=== PATIENT | female | born 2000 | race Caucasian/White ===

== ENCOUNTER 2018-03-14 23:38 | Observation (INO) ==
[2018-03-15] MEDS ORDERED: Ketorolac 15 MG/ML VIAL IVP PRN (02:41)
[2018-03-15] MEDS ORDERED: Naloxone 0.4 MG/ML INJ IVP PRN ×2 (02:41→17:27)
[2018-03-15] MEDS ORDERED: Ondansetron ODT 4 MG TAB.RAPDIS SL PRN ×2 (02:41→17:27)
--- NOTE | 2018-03-15 02:45 | Internal Med History&Physical ---
<Joan Corea M - Last Filed: 03/15/18 04:53> Date of Encounter: 03/15/18 Time of Encounter: 02:43 Internal Medicine - H&P: HPI Chief complaint: right flank pain History of present illness: Ms. Vera is a 17 year old female three months postpardum presented to [facility] ED for right flank pain. Sudden onset yesterday with sharp pain . Associated symptoms of nausea, increased urinary frequency, and burning with urination. She noticed blood on toilet paper after urinated but could not tell if vaginal. She is breast feeding has not started menses since delivery. In [facility] ED, vitals T 97.6, HR 103 BP 100/68 and RR 18 99% RA. WBC 16.8 and LA 1.3. Negative beta HCG. UA negative ph 6 with no blood, nitrites or esterase. CMP wnl with Scr 0.81 and mild elevated alk phos 155. CT abd was completed and patient was told 6mm stone. She was given 1 L IVF and rocephin 1m g with zofran and tordal giving good relief. She had due to macrosomia with good incision healing and no complications. She received general anesthesia and had not compilations. No known medical history but family history of nephrolithiasis in mother. Never smoker denies EtOH and illicit drug use. Past Med Surg Social Fam HX - Past Medical History Medical history: no medical history Psychiatric history: depression - Past Surgical History Surgical History: - Social History Smoking Status: Never smoker Smokeless Tobacco Status: No Alcohol use: none Drug use: none - Family History Mother Hx Family Genitourinary Disorders: Yes (nephrolithiasis) Grandmother Hx Family Cardiac Disorders: Yes (CHF) Internal Medicine - H&P: Meds Amoxicillin [Amoxil] 500 mg PO TID 7 Days capsule 04/10/15 [Rx] Sertraline [Zoloft] 50 mg PO DAILY 03/15/18 [History] 3 Allergy/AdvReac Type Severity Reaction Status Date / Time No Known Allergies Allergy Verified 04/10/15 17:31 All Systems PM: A 10-system review of systems was performed and is negative for pertinent findings except as documented above in the HPI. - Constitutional Constitutional: no chills, no fatigue, no fever(s) - EENT Eyes: no blurry vision - Cardiovascular Cardiovascular ROS IM: no chest pain, no edema, no lightheadedness, no syncope - Respiratory Respiratory: no cough, no dyspnea, no wheezing - Gastrointestinal Gastrointestinal: nausea, no abdominal pain, no constipation, no diarrhea, no vomiting - Genitourinary Genitourinary: abnormal menses, dysuria, hematuria, urinary frequency, no difficulty urinating, no urinary incontinence, no vaginal discharge - Constitutional Vitals: Temp Pulse Resp BP Pulse Ox 98.2 F 101 14 116/66 98 03/15/18 01:17 03/15/18 01:17 03/15/18 01:17 03/15/18 01:17 03/15/18 01:17 General appearance: Present: A&O X 1, A&O X 3, pleasant, answers questions appropriately Exam: Laying comfortably in bed - Head Head exam: Present: atraumatic, normocephalic - Eye Eye exam: Present: EOMI, PERRL - ENT ENT exam: Present: mucous membranes moist, normal oropharynx - Respiratory Respiratory exam: Present: CTAB. Absent: rales, respiratory distress, wheezes - Cardiovascular Cardiovascular exam: Present: RRR. Absent: gallop, rubs - GI/Abdominal GI/Abdominal exam: Present: normal bowel sounds. Absent: guarding, mass, tenderness - Extremities Exam Extremities exam: Present: full ROM, radial pulses palpable and symmetrical. Absent: pedal edema, tenderness - Back Exam Back exam: Present: CVA tenderness (R), full ROM, normal inspection. Absent: CVA tenderness (L), rash noted Additional comments: mild left CVA tenderness - Psychiatric Psychiatric exam: Present: normal affect, normal mood Internal Med - H&P Results - Labs CBC & Chem 7: 03/15/18 03:21 03/15/18 03:21 - Assessment and plan (1) Nephrolithiasis Current Visit: Yes Status: Acute Assessment and plan: Awaiting CT records but [facility] ED called and consulted [place] [facility]. Met SIRs criteria at presentation and considered risk of developing pyelonephritis with unknown degree of obstruction. - continue Rocephin - repeat blood cultures - repeat UA and reflex urine - NPO - IVF NS at 125 - Zofran prn - norco 5 prn as per pharmacy toradol crosses to breast milk at higher rate - considered flomax but mildly hypotensive at ED Requested Evette CT results as it was not sent with patient. (2) Hydronephrosis concurrent with and due to calculi of kidney and ureter Current Visit: Yes Status: Suspected Assessment and plan: awaiting CT records from [place] (3) Depression Current Visit: Yes Status: Acute Assessment and plan: continue home Zoloft Qualifiers: Depression Type: unspecified Qualified Code(s): F32.9 - Major depressive disorder, single episode, unspecified (4) DVT prophylaxis Current Visit: Yes Status: Acute Assessment and plan: heparin - Time Spent With Patient Total time spent is greater than 50% in coordination of care (as documented) at patient's floor/unit and/or counseling patient: Greater than 35 minutes <Josué Venegas - Last Filed: 03/15/18 05:31> Date of Encounter: 03/15/18 Time of Encounter: 05:23 - Constitutional Constitutional: no chills, no fever(s) - EENT Eyes: no change in vision Nose, mouth and throat: no sore throat - Cardiovascular Cardiovascular ROS IM: no chest pain, no dyspnea - Respiratory Respiratory: no cough, no hemoptysis, no chest congestion - Gastrointestinal Gastrointestinal: nausea, no abdominal pain, no diarrhea, no heartburn, no vomiting - Genitourinary Genitourinary: dysuria, flank pain, hematuria - Musculoskeletal Musculoskeletal ROS IM: no arthralgias, no back pain - Integumentary Integumentary IM: no rash, no jaundice - Neurological Neurological ROS: no dizziness, no focal weakness, no frequent falls - Psychiatric Psychiatric: depression (post-), no anxiety - Endocrine Endocrine IM: no polydipsia, no polyphagia, no polyuria - Allergic/Immunologic Allergic/Immunologic: no GI upset with certain foods - Constitutional Vitals: Temp Pulse Resp BP Pulse Ox 98.6 F 82 14 101/64 99 03/15/18 05:02 03/15/18 05:02 03/15/18 05:02 03/15/18 05:02 03/15/18 05:02 General appearance: Present: A&O X 3, pleasant, no acute distress, answers questions appropriately - Eye Eye exam: Present: EOMI, PERRL. Absent: scleral icterus - ENT ENT exam: Present: mucous membranes dry, normal oropharynx - Neck Neck exam general surgery: Present: supple - Respiratory Respiratory exam: Present: CTAB. Absent: rales, respiratory distress, wheezes - Cardiovascular Cardiovascular exam: Present: RRR. Absent: diastolic murmur, systolic murmur - GI/Abdominal GI/Abdominal exam: Present: normal bowel sounds, soft. Absent: guarding, hepatomegaly, rebound, splenomegaly, tenderness - Extremities Exam Extremities exam: Present: full ROM, warm, radial pulses palpable and symmetrical. Absent: calf tenderness, joint swelling, pedal edema, tenderness - Back Exam Back exam: Present: CVA tenderness (R), normal inspection. Absent: CVA tenderness (L) - Neurological Exam Neurological exam: Present: alert, CN II-XII intact, oriented X3, no focal deficits - Psychiatric Psychiatric exam: Present: normal affect, normal mood - Skin Skin exam: Present: dry, intact, warm Internal Med - H&P Results - Labs CBC & Chem 7: 03/15/18 03:21 03/15/18 03:21 Labs: Short CBC 03/15/18 Range/Units 03:21 WBC 11.9 H (4.3-11.1) K/mcL Hgb 11.3 L (11.5-15.4) g/dL Hct 35.2 L (35.3-44.9) % Plt Count 403 H (140-400) K/mcL Neutrophils # 9.2 H (1.6-8.9) K/mcL BMP 03/15/18 03:21 Sodium 139 Potassium 3.8 Chloride 107 Carbon Dioxide 21 L BUN 7 Creatinine 0.58 L Glucose 105 Calcium 9.3 Liver Function 03/15/18 Range/Units 03:21 Total Bilirubin 0.4 (0.3-1.0) mg/dL AST 16 (13-39) Units/L ALT 26 (7-52) Units/L Alkaline Phosphatase 120 H (34-104) Units/L Albumin 4.1 (3.5-5.7) g/dL Urine 03/15/18 Range/Units 05:02 Urine Color Yellow (Yellow) Urine Clarity Clear (Clear) Urine pH 7.0 (5.0-8.0) pH Units Ur Specific [place] > 1.030 H (1.010-1.025) Urine Protein Negative (Neg-Trace) mg/dL Urine Glucose (UA) Normal (Normal) mg/dL - Time Spent With Patient Total time spent is greater than 50% in coordination of care (as documented) at patient's floor/unit and/or counseling patient: - Attending Attestation I discussed the patient [place], past medical history, review of systems, lab data , and exam findings with Dr. Corea. I then saw and examined patient independently. Furthermore, I discussed the patient case with the transferring physician from [facility] ER. Although patient meets SIRS/sepsis criteria, I do not feel she is septic. I suspect all her symptoms and findings are likely due to urolithiasis. I agree with continued IV fluid hydration and empiric antibiotics with Rocephin for the time being. We will follow her blood and urine cultures. If these are negative, I think we will stop antibiotics in the next 2 days. She will likely go to surgery today for cystoscopy with ureteral stent placement per Dr. Nicole. However, I will defer to urology for that. We will keep her nothing by mouth, continue IV fluids, control nausea and pain, and continue antibiotics as above for now. Other than my comments above and noted exam findings, I agree with Dr. Corea's assessment and plan.
[2018-03-15 03:40] LABS: Basophils % 0.3 %; Eosinophils % 0.1 %; Hematocrit 35.2 % (35.3-44.9); Hemoglobin 11.3 g/dL (11.5-15.4); Immature Granulocytes % 0.3 % (0-4); Mean Corpuscular HGB Conc 32.1 g/dL (31.6-35.5); Mean Corpuscular Hemoglobin 24.7 pg (28.0-33.3); Mean Corpuscular Volume 76.9 fL (83.0-100.0); Mean Platelet Volume 9.7 fL (9.4-12.4); Monocytes # 0.6 K/mcL (0.0-1.3); Monocytes % 4.6 %; Neutrophils # 9.2 K/mcL (1.6-8.9); Platelet Count 403 K/mcL (140-400); Red Blood Count 4.58 M/mcL (3.82-4.97); Red Cell Distribution Width 13.9 % (11.5-14.5); Segmented Neutrophils % 77.7 %
[2018-03-15] MEDS: 0.9 % Sodium Chloride 1,000 ML IVC SCH ×2 (03:40→12:19)
[2018-03-15 03:47] LABS: INR 1.1; Prothrombin Time 12.4 Seconds (9.4-12.1)
[2018-03-15 04:00] LABS: Alanine Aminotransferase 26 Units/L (7-52); Albumin 4.1 g/dL (3.5-5.7); Albumin/Globulin Ratio 1.2 (1.1-2.2); Alkaline Phosphatase 120 Units/L (34-104); Aspartate Amino Transferase 16 Units/L (13-39); BUN/Creatinine Ratio 12 (6-26); Bilirubin,Total 0.4 mg/dL (0.3-1.0); Blood Urea Nitrogen 7 mg/dL (6-20); Calcium 9.3 mg/dL (8.6-10.3); Carbon Dioxide 21 mEq/L (23-29); Chloride 107 mEq/L (98-107); Globulin 3.3 g/dL (2.4-3.5); Glucose 105 mg/dL (70-105); Osmolality,Calculated 286 (280-300); Potassium 3.8 mEq/L (3.5-5.1); Sodium 139 mEq/L (136-145); Total Protein 7.4 g/dL (6.4-8.9); eGFR For Non-African Americans > 60
[2018-03-15] MEDS ORDERED: *HR* HYDROcodone/Acet 5/325 mg TABLET PO PRN ×2 (04:30→17:27)
[2018-03-15 05:15] LABS: Bilirubin,Urine Negative (Negative); Blood,Urine Negative (Negative); Clarity,Urine Clear (Clear); Color,Urine Yellow (Yellow); Glucose,Urine (UA) Normal (Normal); Ketones,Urine Trace mg/dL (Negative); Leukocyte Esterase,Urine Negative (Negative); Nitrite,Urine Negative (Negative); Protein,Urine Negative (Neg-Trace); Specific Gravity,Urine > 1.030 (1.010-1.025); Urobilinogen,Urine Normal (Normal)
[2018-03-15] MEDS ORDERED: *HR* Heparin 5,000 UNIT/ML VIAL SQ SCH ×2 (06:00→18:00)
--- NOTE | 2018-03-15 07:56 | Urology - Consult Note ---
Date of Encounter: 03/15/18 Time of Encounter: 07:54 - Assessment and Plan (1) Hydronephrosis concurrent with and due to calculi of kidney and ureter Current Visit: Yes Status: Suspected Assessment and plan: will plan on right ureteroscopic stone extraction today in OR. Urology CN:CARLYLE Consult date: 03/15/18 Reason for consult Urology: Hydronephrosis Requesting physician: Josué Venegas History of present illness: Judy is a 17 y/o female with a history of arrival to outside hospital yesterday secondary to severe right-sided flank pain. Patient was found to have a distal 6 mm UVJ stone. Patient had significant proximal hydronephrosis. Patient states her pain is currently controlled with Toradol. Patient recently delivered via 3 months ago. She is currently breast feeding. No current nausea or vomiting. No fevers. Past Med Surg Social Fam HX - Past Medical History Medical history: no medical history Psychiatric history: depression - Past Surgical History Surgical History: - Social History Smoking Status: Never smoker Smokeless Tobacco Status: No Alcohol use: none Drug use: none - Family History Mother Hx Family Genitourinary Disorders: Yes (nephrolithiasis) Grandmother Hx Family Cardiac Disorders: Yes (CHF) Medications and Allergies Amoxicillin [Amoxil] 500 mg PO TID 7 Days capsule 04/10/15 [Rx] Sertraline [Zoloft] 50 mg PO DAILY 03/15/18 [History] 3 Allergy/AdvReac Type Severity Reaction Status Date / Time No Known Allergies Allergy Verified 04/10/15 17:31 Review of Systems - Constitutional no chills, no fever(s) - EENT Nose, mouth and throat: no dizziness - Cardiovascular no chest pain - Respiratory no cough Exam Initial Vital Signs Temp Pulse Resp BP Pulse Ox 98.2 F 101 14 116/66 98 03/15/18 01:17 03/15/18 01:17 03/15/18 01:17 03/15/18 01:17 03/15/18 01:17 - General physical appearance Present: well developed, well nourished - Eyes Present: PERRL - Neck Present: no lymphadenopathy - Respiratory Present: normal respiratory effort Urology Results - Labs 03/15/18 03:21 03/15/18 03:21 Abnormal lab results WBC 11.9 K/mcL (4.3-11.1) H 03/15/18 03:21 Hgb 11.3 g/dL (11.5-15.4) L 03/15/18 03:21 Hct 35.2 % (35.3-44.9) L 03/15/18 03:21 MCV 76.9 fL (83.0-100.0) L 03/15/18 03:21 MCH 24.7 pg (28.0-33.3) L 03/15/18 03:21 Plt Count 403 K/mcL (140-400) H 03/15/18 03:21 Neutrophils # 9.2 K/mcL (1.6-8.9) H 03/15/18 03:21 PT 12.4 Seconds (9.4-12.1) H 03/15/18 03:21 Carbon Dioxide 21 mEq/L (23-29) L 03/15/18 03:21 Creatinine 0.58 mg/dL (0.60-1.20) L 03/15/18 03:21 Alkaline Phosphatase 120 Units/L (34-104) H 03/15/18 03:21 Ur Specific [place] > 1.030 (1.010-1.025) H 03/15/18 05:02 Urine Ketones Trace mg/dL (Negative) H 03/15/18 05:02 Diabetes panel 03/15/18 Range/Units 03:21 Sodium 139 (136-145) mEq/L Potassium 3.8 (3.5-5.1) mEq/L Chloride 107 (98-107) mEq/L Carbon Dioxide 21 L (23-29) mEq/L BUN 7 (6-20) mg/dL Creatinine 0.58 L (0.60-1.20) mg/dL Glucose 105 (70-105) mg/dL Calcium 9.3 (8.6-10.3) mg/dL AST 16 (13-39) Units/L ALT 26 (7-52) Units/L Alkaline Phosphatase 120 H (34-104) Units/L Albumin 4.1 (3.5-5.7) g/dL Calcium panel 03/15/18 Range/Units 03:21 Calcium 9.3 (8.6-10.3) mg/dL Albumin 4.1 (3.5-5.7) g/dL Pituitary panel 03/15/18 Range/Units 03:21 Sodium 139 (136-145) mEq/L Potassium 3.8 (3.5-5.1) mEq/L Chloride 107 (98-107) mEq/L Carbon Dioxide 21 L (23-29) mEq/L BUN 7 (6-20) mg/dL Creatinine 0.58 L (0.60-1.20) mg/dL Glucose 105 (70-105) mg/dL Calcium 9.3 (8.6-10.3) mg/dL Adrenal panel 03/15/18 Range/Units 03:21 Sodium 139 (136-145) mEq/L Potassium 3.8 (3.5-5.1) mEq/L Chloride 107 (98-107) mEq/L Carbon Dioxide 21 L (23-29) mEq/L BUN 7 (6-20) mg/dL Creatinine 0.58 L (0.60-1.20) mg/dL Glucose 105 (70-105) mg/dL Calcium 9.3 (8.6-10.3) mg/dL Total Bilirubin 0.4 (0.3-1.0) mg/dL AST 16 (13-39) Units/L ALT 26 (7-52) Units/L Alkaline Phosphatase 120 H (34-104) Units/L Albumin 4.1 (3.5-5.7) g/dL All other labs normal. Consult Discharge Plan - Plan Referrals: Niyah Lopes, BIA [Primary Care Provider] -
[2018-03-15] MEDS ORDERED: cefTRIAXone 1,000 MG in Water for inj. (sterile) 20 ML 10 ML IVP SCH (09:00)
--- NOTE | 2018-03-15 10:21 | Internal Med Progress Note ---
<Elsie Nevarez - Last Filed: 03/15/18 17:08> Hospitalist Progress Note - Encounter Date of Encounter: 03/15/18 Time of Encounter: 08:30 - Subjective Interval History: The patient is a very pleasant 17 year old female who is 3 months post- presenting to [facility] as a transfer from [facility] ED with right flank pain. Patient said the pain began suddenly yesterday and was a sharp pain in her right flank. She also had nausea, increased urinary frequency, and burning with urination. She noticed blood on the toilet paper after urinating but could not tell if it was vaginal. She is breast feeding and has not had her menses start post- delivery. In [facility] ED last night, UA was negative with pH 6, no blood, nitrates or leukocyte esterase. CT of abdomen showed a distal 6mm UVJ stone and hydronephrosis. She was given 1L IVF and rocephin 1g with zofran and toradol. Patient admits she drinks a significant amount of soda and does not like to drink water. She has no past medical history but her mom does have a history of nephrolithiasis. This is hospitalization day number 1. The patient was seen and examined at bedside this morning. No acute events since admission early this AM. Today, patient states that her nausea has resolved and her right flank pain has improved but is still present. She has not noticed any blood in her urine and she is no longer experiencing dysuria. The patient denies any new complaints today. The patient denies any lightheadedness, dizziness, vision changes, headache, chest pain, palpitations, shortness of breath, cough, wheezing, sputum production, vomiting, bowel changes, edema, fever or chills. - Exam Vitals: Temp Pulse Resp BP Pulse Ox 98.4 F 78 16 101/64 99 03/15/18 07:15 03/15/18 07:15 03/15/18 07:15 03/15/18 07:15 03/15/18 07:15 Exam: GENERAL: Patient is a well-nourished 17 year old female in no acute distress with appropriate affect. Alert & oriented x3. HEENT: Head is normocephalic, atraumatic, well formed. EYES: PERRLA, EOMI. MOUTH : Oropharynx clear. Mucous membranes moist. NECK: Supple, no masses, trachea midline. No JVD noted. CV: Regular rate and rhythm. Normal S1, S2 with no clicks, murmurs, gallops, or rubs. PULMONARY: Breath sounds are clear and equal bilaterally. Symmetrical chest expansion. No wheeze, rales or rhonchi. Good effort. GI: Abdomen is soft, nondistended, tender to palpation in the right flank, positive bowel sounds x 4 present and appropriate. No peritoneal signs or guarding. No palpable masses. Scar from noted, no erythema, healing well. SKIN: Warm, dry and intact. No rashes, bruising, cyanosis or non healing lesions are seen. No edema is noted. NEUROLOGICAL: Alert, awake. CN II-XII grossly intact. Patient is moving all extremities and following commands appropriately. No focal deficits are noted. Muscle strength 5/5 x 4 extremities. VASCULAR/EXTREMITIES: No cyanosis, clubbing, or edema in lower extremities. - Assessment and Plan (1) Nephrolithiasis Current Visit: Yes Status: Acute Assessment and Plan: Patient presented with right flank pain, urinary frequency, and dysuria from [facility] ED. She was found to have a distal 6mm UVJ stone and hydronephrosis. UA was negative at both [facility] and [facility]. Patient did not present as septic. She was given 1L IVF, 1g Rocephin, Zofran and toradol at [facility]. - Urology Consulted - NPO for right ureteroscpoic stone extration today in OR. Provided a breast pump so that patient could pump breast milk prior to the anesthesia for her procedure today. If patient is clinically stable and improved after her procedure today and urology signs off on it, possible discharge this afternoon/evening. - Pain control - Discontinued Toradol and started her on vicodin since she is her and vicodin stays in the breast milk for a shorter time. - Zofran PRN for nausea - IVF NSS 1L - 125mls/hr (2) Hydronephrosis concurrent with and due to calculi of kidney and ureter Current Visit: Yes Status: Suspected Assessment and Plan: Plan as stated above. - Hydronephrosis should resolve after treatment of distal UVJ 6mm stone today in OR with ureteroscopic stone extraction. (3) Depression Current Visit: Yes Status: Acute Assessment and Plan: Continue home zoloft dosage. (4) DVT prophylaxis Current Visit: Yes Status: Acute Assessment and Plan: SQ Heparin 5000U Q12H DVT Prophylaxis: SQ Heparin 5000U Q12H - Summary of Assessment and Plan Summary of Assessment and Plan: FULL CODE The foregoing assessment and plan have been reviewed with my resident, Dr. Cunningham, and attending physician, Dr. Peacock, who are in agreement. Please see note from my attending for any details or changes. - Time Spent with Patient Total time spent is greater than 50% in coordination of care (as documented) at patient's floor/unit and/or counseling patient: 25 - 35 minutes Plan of Care Discussed with: patient Internal Medicine: Result - Labs CBC & Chem 7: 03/15/18 03:21 03/15/18 03:21 Labs: Short CBC 03/15/18 Range/Units 03:21 WBC 11.9 H (4.3-11.1) K/mcL Hgb 11.3 L (11.5-15.4) g/dL Hct 35.2 L (35.3-44.9) % Plt Count 403 H (140-400) K/mcL Neutrophils # 9.2 H (1.6-8.9) K/mcL BMP 03/15/18 03:21 Sodium 139 Potassium 3.8 Chloride 107 Carbon Dioxide 21 L BUN 7 Creatinine 0.58 L Glucose 105 Calcium 9.3 Liver Function 03/15/18 Range/Units 03:21 Total Bilirubin 0.4 (0.3-1.0) mg/dL AST 16 (13-39) Units/L ALT 26 (7-52) Units/L Alkaline Phosphatase 120 H (34-104) Units/L Albumin 4.1 (3.5-5.7) g/dL Urine 03/15/18 Range/Units 05:02 Urine Color Yellow (Yellow) Urine Clarity Clear (Clear) Urine pH 7.0 (5.0-8.0) pH Units Ur Specific [place] > 1.030 H (1.010-1.025) Urine Protein Negative (Neg-Trace) mg/dL Urine Glucose (UA) Normal (Normal) mg/dL - ABG Interpretation ABG results: PT/INR, D-dimer PT 12.4 Seconds (9.4-12.1) H 03/15/18 03:21 Consult Discharge Plan - Plan Additional Instructions: - Follow up with urology clinic as an outpatient in 3-4 weeks -Can breast-feed her child 24 hours after the procedure -Stay Hydrated. -Eat more calcium rich foods. -Eat less animal protein Referrals: Charles Nicole MD [Partnered Physician] - (Web request entered. Office will call with appointment.) Niyah Lopes CNP [Primary Care Provider] - Prescriptions: HYDROcodone/Acet 5/325 mg [Avery 5-325 mg] 1 tab PO Q12HR PRN 2 Days #4 tablet PRN Reason: post op analgesia <Hunter Peacock - Last Filed: 03/15/18 18:40> Hospitalist Progress Note - Encounter Date of Encounter: 03/15/18 - Exam Vitals: Temp Pulse Resp BP Pulse Ox 97.6 F 83 14 119/74 98 03/15/18 18:00 03/15/18 18:00 03/15/18 18:00 03/15/18 18:00 03/15/18 17:28 - Time Spent with Patient Total time spent is greater than 50% in coordination of care (as documented) at patient's floor/unit and/or counseling patient: Internal Medicine: Result - Labs CBC & Chem 7: 03/15/18 03:21 03/15/18 03:21 Labs: Short CBC 03/15/18 Range/Units 03:21 WBC 11.9 H (4.3-11.1) K/mcL Hgb 11.3 L (11.5-15.4) g/dL Hct 35.2 L (35.3-44.9) % Plt Count 403 H (140-400) K/mcL Neutrophils # 9.2 H (1.6-8.9) K/mcL BMP 03/15/18 03:21 Sodium 139 Potassium 3.8 Chloride 107 Carbon Dioxide 21 L BUN 7 Creatinine 0.58 L Glucose 105 Calcium 9.3 Liver Function 03/15/18 Range/Units 03:21 Total Bilirubin 0.4 (0.3-1.0) mg/dL AST 16 (13-39) Units/L ALT 26 (7-52) Units/L Alkaline Phosphatase 120 H (34-104) Units/L Albumin 4.1 (3.5-5.7) g/dL Urine 03/15/18 Range/Units 05:02 Urine Color Yellow (Yellow) Urine Clarity Clear (Clear) Urine pH 7.0 (5.0-8.0) pH Units Ur Specific [place] > 1.030 H (1.010-1.025) Urine Protein Negative (Neg-Trace) mg/dL Urine Glucose (UA) Normal (Normal) mg/dL - ABG Interpretation ABG results: PT/INR, D-dimer PT 12.4 Seconds (9.4-12.1) H 03/15/18 03:21 - Attending Attestation Please see discharge summary of this date. <Elsie Nevarez - Last Filed: 03/15/18 17:08> (3) Depression Qualifiers: Depression Type: unspecified Qualified Code(s): F32.9 - Major depressive disorder, single episode, unspecified
[2018-03-15] MEDS ORDERED: Acetaminophen IV 1,000 MG/100 ML INFUS..BTL ONE (15:44)
[2018-03-15] MEDS ORDERED: Scopolamine Patch 1.5 MG PATCH.TD72 ONE (15:44)
--- NOTE | 2018-03-15 15:50 | Anesthesia Evaluation PreOp ---
Date of Encounter: 03/15/18 Time of Encounter: 15:50 - Past History Planned Operation: R ureteral stone extraction Cardiac History: Denies any Significant Hx Pulmonary History: Denies Any Significant HX [employer]ER History: Denies Any Significant HX, Other (depression) Other Medical History: Denies Any Significant HX Anesthesia History: Past Anesthesia (recent c/s) Alcohol Use: none Drug use: none Medications and Allergies Sertraline [Zoloft] 50 mg PO DAILY 03/15/18 [History] 3 Allergy/AdvReac Type Severity Reaction Status Date / Time No Known Allergies Allergy Verified 03/15/18 08:24 - Meds/Allergy Pre-op Review Medications Reviewed: Yes Allergies Reviewed: Yes Beta Blockers on Current Med List: No Anesthesia Results - Labs 03/15/18 03:21 03/15/18 03:21 Anesthesia Exam Selected Entries 03/15/18 15:05 Temperature 98.1 F Pulse Rate 79 Respiratory Rate 17 Blood Pressure 118/76 Weight: 71 kg NPO (# of Hours): over 8 hours - HEENT Pupil (Motor): Pupils equal Mallampati: I Teeth: Normal Oral Opening: Greater than 3 - Cardiac Rhythm: Regular Murmur: None - Pulmonary Breath Sounds: bilateral Clear Respiratory Effort: Symmetrical Anesthesia Assess/Plan ASA Score: 1 Modified Man[place]us Scale for Level of Consciousness: Cooperative, oriented, and tranquil Anesthetic Plan: General Monitoring Plan: Standard Monitors Recovery Plan: PACU (Discussed GA, risks. Agreed to proceed.)
[2018-03-15] MEDS ORDERED: *HR* Propofol 200 MG/20 ML VIAL IVP ONE (16:05)
[2018-03-15] MEDS ORDERED: Ketorolac 30 MG/ML VIAL ONE (16:05)
[2018-03-15] MEDS ORDERED: *HR* FentaNYL (PF) 100 MCG/2 ML VIAL ONE (16:05)
[2018-03-15] MEDS ORDERED: Dexamethasone 4 MG/ML VIAL ONE (16:05)
[2018-03-15] MEDS ORDERED: Ondansetron 4 MG/2 ML VIAL ONE (16:05)
[2018-03-15] MEDS ORDERED: Lidocaine -MPF 2% 2 ML VIAL ONE (16:05)
[2018-03-15] MEDS ORDERED: *HR* OxyCODONE Immed Rel 5 MG TABLET PO PRN (16:50)
[2018-03-15] MEDS ORDERED: *HR* Morphine 2 MG/ML SYRINGE IVP PRN (16:50)
[2018-03-15] MEDS ORDERED: *HR* Promethazine 25 MG/ML VIAL IVP PRN (16:50)
[2018-03-15] MEDS ORDERED: *HR* Meperidine 25 MG/ML SYRINGE IVP PRN (16:50)
--- NOTE | 2018-03-15 16:57 | Operative Note ---
Date of procedure: 03/15/18 Pre-op diagnosis: right distal ureteral stone Post-op diagnosis: same Procedure: Right ureteroscopic laser lithotripsy of stone, right ureteroscopic basket retrieval stone fragment Anesthesia: GETA Surgeon: Charles Nicole Was there an commercial escrow assistant present: No Estimated blood loss (cc): 0 Specimen: right ureteral stone Condition: stable Disposition: PACU Procedure in Detail: Patient was prepped and draped in normal sterile fashion. I then introduced the semirigid ureteroscope into the patient's bladder. I was able to cannulate the right ureteral orifice. I encountered the distal 5 mm stone. I then using holmium laser to fragment the stone. All stone fragments were then removed using a basket device. Distal ureter showed minimal inflammation and thus I did not leave a ureteral stent. Bladder was drained and procedure was ended. Patient taken to PACU in stable condition.
--- NOTE | 2018-03-15 16:58 | Event Note ---
Date of Encounter: 03/15/18 Time of Encounter: 16:57 Patient okay to discharge from urology standpoint. Follow-up will be made for patient in 3-4 weeks.
[2018-03-15] MEDS ORDERED: 0.9 % Sodium Chloride 1,000 ML IVC SCH (17:27)
--- NOTE | 2018-03-15 17:29 | Discharge Summary ---
<Chadd Cunningham - Last Filed: 03/15/18 17:46> - NOTES TO OUTPATIENT PROVIDER Notes to Outpatient Provider: -Follow up with urology as an outpatient in 3-4 weeks. -Follow up with PCP for management of depression Orders not resulted at time of discharge: Pending orders 03/15/18 03:21 Culture,Blood [BC] Stat 03/15/18 16:51 Surgical Pathology [PTH] Routine Date of Encounter: 03/15/18 Time of Encounter: 09:45 - Discharge Diagnosis (1) Nephrolithiasis Priority: Primary Status: Acute Hospital course: Ms. Vera is a17 year old female who is 3 months post- presenting to [facility] as a transfer from [facility] ED with right flank pain. Patient said the pain began suddenly yesterday and was a sharp pain in her right flank. She also had nausea, increased urinary frequency, and burning with urination. She noticed blood on the toilet paper after urinating but could not tell if it was vaginal. She is breast feeding and has not had her menses start post-delivery. In [facility] ED last night, UA was negative with pH 6, no blood, nitrates or leukocyte esterase. CT of abdomen showed a distal 6mm UVJ stone and hydronephrosis. She was given 1L IVF and rocephin 1g with zofran and toradol. Patient admits she drinks a significant amount of soda and does not like to drink water. She has no past medical history but her mom does have a history of nephrolithiasis. This afternoon, patient underwent right uteroscopy laser lithotripsy of stone. She tolerated the procedure very well. From the standpoint of urology patient is okay to be discharged. She has been recommended to follow-up with urology clinic in 3-4 weeks. - Time Spent with Patient Total time spent providing and/or coordinating discharge services: - Discharge Medications Prescriptions: HYDROcodone/Acet 5/325 mg [[place] 5-325 mg] 1 tab PO Q12HR PRN 2 Days #4 tablet PRN Reason: post op analgesia Home Medications: HYDROcodone/Acet 5/325 mg [[place] 5-325 mg] 1 tab PO Q12HR PRN 2 Days #4 tablet 03/15/18 [Rx] Sertraline [Zoloft] 50 mg PO DAILY 03/15/18 [History] Allergies/Adverse Reactions: 3 Allergy/AdvReac Type Severity Reaction Status Date / Time No Known Allergies Allergy Verified 03/15/18 08:24 Date of admission: 03/15/18 01:07 Primary care physician: ABDIAZIZ Mike - Constitutional Vitals: Temp Pulse Resp BP Pulse Ox 97.8 F 93 16 111/72 98 03/15/18 17:28 03/15/18 17:28 03/15/18 17:28 03/15/18 17:28 03/15/18 17:28 General appearance: Present: A&O X 3, pleasant, no acute distress, answers questions appropriately Exam: GENERAL: Patient is a well-nourished 17 year old female in no acute distress with appropriate affect. Alert & oriented x3. HEENT: Head is normocephalic, atraumatic, well formed. EYES: PERRLA, EOMI. MOUTH : Oropharynx clear. Mucous membranes moist. NECK: Supple, no masses, trachea midline. No JVD noted. CV: Regular rate and rhythm. Normal S1, S2 with no clicks, murmurs, gallops, or rubs. PULMONARY: Breath sounds are clear and equal bilaterally. Symmetrical chest expansion. No wheeze, rales or rhonchi. Good effort. GI: Abdomen is soft, nondistended, tender to palpation in the right flank, positive bowel sounds x 4 present and appropriate. No peritoneal signs or guarding. No palpable masses. Scar from noted, no erythema, healing well. SKIN: Warm, dry and intact. No rashes, bruising, cyanosis or non healing lesions are seen. No edema is noted. NEUROLOGICAL: Alert, awake. CN II-XII grossly intact. Patient is moving all extremities and following commands appropriately. No focal deficits are noted. Muscle strength 5/5 x 4 extremities. VASCULAR/EXTREMITIES: No cyanosis, clubbing, or edema in lower extremities. - Patient Status Disposition: Home, Self-Care Functional capacity at discharge: independent ambulation Overall status at discharge: patient is progressing back to baseline - Discharge Instructions Follow Up With: Charles Nicole MD [Partnered Physician] - (Web request entered. Office will call with appointment.) Niyah Lopes CNP [Primary Care Provider] - Additional Instructions: - Follow up with urology clinic as an outpatient in 3-4 weeks -Can breast-feed her child 24 hours after the procedure -Stay Hydrated. -Eat more calcium rich foods. -Eat less animal protein - Diet and Activity Activity: resume usual activities as tolerated Diet: advance to your usual diet <AyushHunter Marleni - Last Filed: 03/15/18 18:44> Orders not resulted at time of discharge: Pending orders 03/15/18 03:21 Culture,Blood [BC] Stat 03/15/18 16:51 Surgical Pathology [PTH] Routine Date of Encounter: 03/15/18 - Discharge Diagnosis (1) Nephrolithiasis Status: Acute (2) Hydronephrosis concurrent with and due to calculi of kidney and ureter Priority: Secondary Status: Suspected (3) Depression Priority: Secondary Status: Chronic Qualifiers: Depression Type: unspecified Qualified Code(s): F32.9 - Major depressive disorder, single episode, unspecified Hospital course: Ms. Vera is a 17 year old female - Time Spent with Patient Total time spent providing and/or coordinating discharge services: 28min Date of admission: 03/15/18 01:07 Primary care physician: ABDIAZIZ Mike - Constitutional Vitals: Temp Pulse Resp BP Pulse Ox 97.6 F 83 14 119/74 98 03/15/18 18:00 03/15/18 18:00 03/15/18 18:00 03/15/18 18:00 03/15/18 17:28 - Attending Attestation I examined this patient and my medical decision-making was reviewed with the Resident Physician on 03/15/18. I agree with the documented findings, disposition and treatment plan as described except to the extent set forth below. Ms Vera was admitted earlier today for acute kidney stone. She is 3 months post . She had litotripsy and stent placement. She is ready for discharge home. Exam alert Comfortable Mucus membranes dry Heart reg No wheeze Plan D/C home tonight.
[2018-03-15 18:45] VITALS: BP 123/86
[2018-03-16] MEDS ORDERED: cefTRIAXone 1,000 MG in Water for inj. (sterile) 20 ML 10 ML IVP SCH (09:00)
[2018-03-21 22:12] LABS: Calculi Mass 6 mg
== END 2018-03-15 18:59 | disposition home or self-care (01) ==
LOC: 3ANU → SUATTDRO 03-15 01:07
PROVIDERS: ADMIT Pediatrics; ATTEND Internal Medicine

== ENCOUNTER 2020-05-13 13:28 | Observation (INO) ==
[2020-05-13] MEDS ORDERED: Isovue-370 500 ML BOTTLE IVP ONE (13:55)
[2020-05-13] MEDS ORDERED: 0.9 % Sodium Chloride 1,000 ML IV ONE (13:56)
[2020-05-13] MEDS ORDERED: *HR* FentaNYL (PF) 100 MCG/2 ML VIAL IVP ONE (13:56)
[2020-05-13 14:31] LABS: Basophils # 0.1 K/mcL (0.0-0.2); Basophils % 0.4 %; Eosinophils # 0.1 K/mcL (0.0-0.6); Eosinophils % 0.5 %; Hematocrit 41.1 % (35.3-44.9); Hemoglobin 13.8 g/dL (11.5-15.4); Immature Granulocytes % 0.6 % (0-4); Lymphocytes # 1.9 K/mcL (0.6-4.6); Lymphocytes % 13.5 %; Mean Corpuscular HGB Conc 33.6 g/dL (31.6-35.5); Mean Corpuscular Hemoglobin 29.3 pg (28.0-33.3); Mean Corpuscular Volume 87.3 fL (83.0-100.0); Mean Platelet Volume 9.3 fL (9.4-12.4); Monocytes # 0.7 K/mcL (0.0-1.3); Monocytes % 5.2 %; Neutrophils # 11.3 K/mcL (1.6-8.9); Platelet Count 339 K/mcL (140-400); Red Blood Count 4.71 M/mcL (3.82-4.97); Red Cell Distribution Width 11.4 % (11.5-14.5); Segmented Neutrophils % 79.8 %; White Blood Count 14.1 K/mcL (4.3-11.1)
[2020-05-13 14:51] LABS: BUN/Creatinine Ratio 12 (6-26); Blood Urea Nitrogen 8 mg/dL (6-20); Calcium 9.9 mg/dL (8.6-10.3); Carbon Dioxide 24 mEq/L (23-29); Chloride 99 mEq/L (98-107); Glucose 86 mg/dL (70-105); Osmolality,Calculated 278 (280-300); Potassium 3.4 mEq/L (3.5-5.1); Sodium 135 mEq/L (136-145); eGFR For African Americans > 60 (> 60); eGFR For Non-African Americans > 60 (> 60)
[2020-05-13] MEDS ORDERED: Cefepime HCl 1,000 MG in 0.9 % Sodium Chloride Mini Bag 100 ML IVPB ONE (15:44)
[2020-05-13] MEDS ORDERED: *HR* HYDROmorphone (PF) 1 MG/ML SYRINGE IVP ONE (15:49)
[2020-05-13] MEDS ORDERED: Piperacillin/Tazobactam 3.375 GM in 0.9 % Sodium Chloride Mini Bag 100 ML IVPB ONE (15:52)
[2020-05-13] MEDS ORDERED: Vancomycin 1,500 MG/265 ML IV.SOLN IVPB ONE (15:53)
[2020-05-13] MEDS ORDERED: Acetaminophen 325 MG TABLET PO PRN (16:46)
[2020-05-13] MEDS ORDERED: Naloxone 0.4 MG/ML INJ IVP PRN (16:46)
[2020-05-13] MEDS ORDERED: Ketorolac 15 MG/ML VIAL IVP ONE (18:07)
[2020-05-13] MEDS: *HR* HYDROcodone/Acet 5/325 mg TABLET PO PRN (19:40)
[2020-05-14] MEDS: Ampicillin/Sulbactam 1,500 MG in 0.9 % Sodium Chloride Mini Bag 100 ML IVPB SCH ×4 (00:06→17:09)
[2020-05-14] MEDS: Ibuprofen 400 MG TABLET PO PRN ×2 (00:12→06:11)
[2020-05-14 01:29] LABS: Basophils # 0.1 K/mcL (0.0-0.2); Basophils % 0.4 %; Eosinophils # 0.1 K/mcL (0.0-0.6); Eosinophils % 0.7 %; Hemoglobin 12.7 g/dL (11.5-15.4); Immature Granulocytes % 0.5 % (0-4); Lymphocytes # 2.1 K/mcL (0.6-4.6); Mean Corpuscular HGB Conc 34.3 g/dL (31.6-35.5); Mean Corpuscular Hemoglobin 29.7 pg (28.0-33.3); Mean Corpuscular Volume 86.4 fL (83.0-100.0); Mean Platelet Volume 9.2 fL (9.4-12.4); Monocytes # 0.7 K/mcL (0.0-1.3); Monocytes % 5.5 %; Neutrophils # 10.2 K/mcL (1.6-8.9); Platelet Count 330 K/mcL (140-400); Red Blood Count 4.28 M/mcL (3.82-4.97); Red Cell Distribution Width 11.4 % (11.5-14.5); Segmented Neutrophils % 76.9 %; White Blood Count 13.3 K/mcL (4.3-11.1)
[2020-05-14] MEDS: *HR* HYDROcodone/Acet 5/325 mg TABLET PO PRN ×3 (01:45→19:41)
[2020-05-14 01:48] LABS: BUN/Creatinine Ratio 10 (6-26); Blood Urea Nitrogen 6 mg/dL (6-20); Calcium 8.5 mg/dL (8.6-10.3); Carbon Dioxide 22 mEq/L (23-29); Chloride 101 mEq/L (98-107); Glucose 118 mg/dL (70-105); Osmolality,Calculated 275 (280-300); Potassium 3.5 mEq/L (3.5-5.1); Sodium 133 mEq/L (136-145); eGFR For African Americans > 60 (> 60); eGFR For Non-African Americans > 60 (> 60)
[2020-05-14] MEDS: Vancomycin 1,250 MG/262.5 ML IV.SOLN IVPB SCH ×2 (03:29→15:37)
[2020-05-14] MEDS: *HR* Heparin 5,000 UNIT/ML VIAL SQ SCH ×2 (05:15→17:09)
[2020-05-14] MEDS: Ketorolac 15 MG/ML VIAL IVP PRN ×2 (12:36→19:32)
[2020-05-14] MEDS ORDERED: hydrOXYzine pamoate 25 MG CAPSULE PO SCH (21:00)
[2020-05-14] MEDS ORDERED: Mirtazapine 15 MG TABLET PO SCH (21:00)
[2020-05-14] MEDS ORDERED: risperiDONE 1 MG TABLET PO SCH (21:00)
[2020-05-14] MEDS ORDERED: lamoTRIgine 100 MG TABLET PO SCH (21:00)
[2020-05-14] MEDS ORDERED: Venlafaxine XR (24 HR) 75 MG CAP.ER.24H PO SCH (21:00)
[2020-05-15] MEDS: Ampicillin/Sulbactam 1,500 MG in 0.9 % Sodium Chloride Mini Bag 100 ML IVPB SCH ×3 (01:04→11:49)
[2020-05-15] MEDS: Ketorolac 15 MG/ML VIAL IVP PRN (01:48)
[2020-05-15] MEDS: *HR* HYDROcodone/Acet 5/325 mg TABLET PO PRN (01:49)
[2020-05-15] MEDS: Vancomycin 1,250 MG/262.5 ML IV.SOLN IVPB SCH ×2 (04:59→13:12)
[2020-05-15] MEDS: *HR* Heparin 5,000 UNIT/ML VIAL SQ SCH (05:00)
[2020-05-15] MEDS ORDERED: Ondansetron 4 MG/2 ML VIAL IVP PRN (08:57)
[2020-05-15 09:33] LABS: Basophils % 0.4 %; Eosinophils # 0.1 K/mcL (0.0-0.6); Eosinophils % 1.5 %; Hematocrit 39.5 % (35.3-44.9); Hemoglobin 13.3 g/dL (11.5-15.4); Immature Granulocytes % 0.7 % (0-4); Lymphocytes # 1.7 K/mcL (0.6-4.6); Lymphocytes % 18.3 %; Mean Corpuscular HGB Conc 33.7 g/dL (31.6-35.5); Mean Corpuscular Hemoglobin 29.2 pg (28.0-33.3); Mean Corpuscular Volume 86.6 fL (83.0-100.0); Mean Platelet Volume 9.3 fL (9.4-12.4); Monocytes # 0.4 K/mcL (0.0-1.3); Monocytes % 4.3 %; Platelet Count 364 K/mcL (140-400); Red Blood Count 4.56 M/mcL (3.82-4.97); Red Cell Distribution Width 11.3 % (11.5-14.5); Segmented Neutrophils % 74.8 %; White Blood Count 9.4 K/mcL (4.3-11.1)
[2020-05-15 09:49] LABS: BUN/Creatinine Ratio 9 (6-26); Blood Urea Nitrogen 6 mg/dL (6-20); Calcium 9.3 mg/dL (8.6-10.3); Carbon Dioxide 27 mEq/L (23-29); Chloride 102 mEq/L (98-107); Glucose 126 mg/dL (70-105); Osmolality,Calculated 283 (280-300); Potassium 3.6 mEq/L (3.5-5.1); Sodium 137 mEq/L (136-145); eGFR For African Americans > 60 (> 60); eGFR For Non-African Americans > 60 (> 60)
[2020-05-15 12:10] VITALS: BP 136/84
== END 2020-05-15 15:15 | disposition home or self-care (01) ==
LOC: 3ANU 13:28 → EMEROOARM 13:28 → SUATTDRO 16:32 → 3ANU 17:45
PROVIDERS: ADMIT Internal Medicine; ATTEND Internal Medicine